=== PATIENT | female | born 1985 | race Caucasian/White ===

== ENCOUNTER 2022-08-21 22:15 | Emergency (ER) | payer BC, OTHER ==
[2022-08-21] MEDS: Lidocaine 2% with EPINEPHrine 1:100,000 20 ML MDV INJECT ONE (23:00)
[2022-08-21] MEDS: Lidocaine 2% with EPINEPHrine 1:100,000 20 ML MDV ONE (23:20)
[2022-08-22] MEDS: Diphtheria,Pertussis(Acell),Tetanus Vaccine 0.5 ML Syringe IM ONE (01:03)
[2022-08-22] MEDS: Bacitracin/Neomycin/Polymyxin B Oint 0.9 GM U/D Packet TOP ONE (01:05)
== END 2022-08-22 01:20 | disposition home or self-care (01) ==
LOC: LL.ED 22:15
DX: S71.112A Laceration without foreign body, left thigh, initial encounter (principal); Z23 Encounter for immunization; W26.8XXA Contact with other sharp object(s), not elsewhere classified, initial encounter
CPT/HCPCS: 12006; 90471; 90715; 99283-25; J3490